=== PATIENT | male | born 1975 | race Caucasian/White ===

== ENCOUNTER 2017-05-09 23:18 | Emergency (ER) | payer SELFPAY ==
[~2017-05-09] VITALS: Ht 182.9 cm; Wt 73.0 kg
[2017-05-10 02:56] VITALS: BP 115/68
== END 2017-05-10 03:16 | disposition home or self-care (01) ==
LOC: ER 23:18
DX: S63.501A Unspecified sprain of right wrist, initial encounter (principal); X58.XXXA Exposure to other specified factors, initial encounter; Y93.89 Activity, other specified; Y92.89 Other specified places as the place of occurrence of the external cause; Y99.8 Other external cause status
CPT/HCPCS: 73130; 99284